=== PATIENT | female | born 1930 | race Caucasian/White ===

== ENCOUNTER 2018-10-10 22:35 | Emergency (ER) | payer MEDICARE, OTHER ==
[~2018-10-10] VITALS: Ht 162.6 cm; Wt 80.7 kg
[~2018-10-10 22:35] MED LIST: ASPI-807 PO; OLME1TAB34 PO
--- NOTE | 2018-10-10 22:45 | NUR ---
PT BIBFAMILY C/O LOWER ABDOMINAL PAIN X3 DAYS. DENIES NAUSEA, VOMITTING, DIARRHEA, FEVER, SOB. PT AAOX4. RESPIRATIONS EVEN AND UNLABORED. SKIN WARM AND INTACT. NO ACUTE DISTRESS NOTED AT THIS TIME. WILL CONTINUE TO MONITOR
--- NOTE | 2018-10-10 22:49 | NUR ---
IV INITIATED, LABS DRAWN FROM SITE. CREAM DIPPER AT BEDSIDE FOR COLLECTION
[2018-10-10 22:54] LABS: BASOPHILS # (AUTO) 0.1 /CMM (0.0-0.2); BASOPHILS % (AUTO) 0.8 % (0.0-2.0); EOSINOPHILS % (AUTO) 2.1 % (0.0-6.0); HEMATOCRIT 41 % (33-45); HEMOGLOBIN 13.8 g/dL (11.5-14.8); LYMPHOCYTES # (AUTO) 2.4 /CMM (0.8-4.8); LYMPHOCYTES % (AUTO) 31.5 % (20.0-44.0); MEAN CORPUSCULAR HGB CONC 34 g/dl (31.0-36.0); MEAN CORPUSCULAR VOLUME 90 fL (82-100); MONOCYTES # (AUTO) 0.5 /CMM (0.1-1.30); MONOCYTES % (AUTO) 6.4 % (2.0-12.0); NEUTROPHILS # (AUTO) 4.5 /CMM (1.8-8.9); NEUTROPHILS % (AUTO) 59.2 % (43.0-81.0); PLATELET COUNT (AUTO) 160 /CMM (150-450); RED BLOOD CELL COUNT(AUTO) 4.53 MIL/uL (4.0-5.2); WHITE BLOOD COUNT (AUTO) 7.5 K/uL (4.3-11.0)
[2018-10-10 23:02] LABS: CARBON DIOXIDE 32 mmol/L (21-32); CHLORIDE 106 mmol/L (98-107); CREATININE 1.1 mg/dL (0.6-1.3); GLUCOSE 143 mg/dL (74-106); POTASSIUM 3.5 mmol/L (3.5-5.1); SODIUM SERUM 144 mmol/L (136-145); UREA NITROGEN, BLOOD 26 mg/dL (7-18)
[2018-10-10] MEDS ORDERED: IOHEXOL-300 100 ML VIAL IV ONE (23:07)
--- NOTE | 2018-10-10 23:43 | NUR ---
PT BROUGHT BY RADIOLOGY FOR CT
--- NOTE | 2018-10-11 00:25 | NUR ---
PT RESTING COMFORTABLY IN BED. VITAL SIGNS STABLE. DENIES PAIN AT THIS TIME. WILL CONTINUE TO MONITOR
--- NOTE | 2018-10-11 01:16 | NUR ---
Patient discharged to home in stable condition. Written and verbal after care instructions given. Patient verbalizes understanding of instruction. IV removed. Catheter intact and site benign. Pressure and 4x4 applied to site. No bleeding noted. Pt ambulatory with a steady gait
[2018-10-11 01:18] VITALS: BP 128/79
== END 2018-10-11 01:18 | disposition home or self-care (01) ==
LOC: ER 22:35
DX: K57.32 Diverticulitis of large intestine without perforation or abscess without bleeding (principal); I25.10 Atherosclerotic heart disease of native coronary artery without angina pectoris; I10 Essential (primary) hypertension; Z79.82 Long term (current) use of aspirin
CPT/HCPCS: 36415; 74177; 80048; 85025; 99284; Q9967